=== PATIENT | female | born 1960 | race Caucasian/White ===

== ENCOUNTER 2021-03-18 06:34 | Day surgery (SDC) | payer OTHER ==
[2021-03-15 09:18] LABS: COVID AG,FIA SOURCE NASOPHARYNGEAL
[~2021-03-18] VITALS: Ht 165.1 cm; Wt 72.7 kg
[~2021-03-18 06:34] MED LIST: SODIUM CHLORIDE 0.9% 1,000 ML IV ONE
[2021-03-18] MEDS ORDERED: SODIUM CHLORIDE 0.9% 1,000 ML ONE (06:56)
[2021-03-18] MEDS ORDERED: FentaNYL CITRATE PF 100 MCG/2 ML VIAL ONE (07:52)
[2021-03-18] MEDS ORDERED: MIDAZOLAM HCL 5 MG/ML VIAL ONE (07:53)
[2021-03-18] MEDS ORDERED: MethylPREDNISolone SOD SUCC 125 MG/2 ML VIAL ONE (09:04)
[2021-03-18] MEDS ORDERED: MethylPREDNISolone SOD SUCC 125 MG/2 ML VIAL IVP ONE (09:30)
[2021-03-18] MEDS ORDERED: OXYGEN THERAPY IH SCH (20:00)
== END 2021-03-18 11:50 | disposition home or self-care (01) ==
LOC: SURGERY 06:34
PROVIDERS: ATTEND Internal Medicine Critical Care Medicine
DX: J38.4 Edema of larynx (principal); B37.0 Candidal stomatitis; F17.210 Nicotine dependence, cigarettes, uncomplicated; Z98.890 Other specified postprocedural states; Z79.899 Other long term (current) drug therapy; Z85.3 Personal history of malignant neoplasm of breast
CPT/HCPCS: 31623; 31624; 71045; 87015; 87070; 87220; 87101; 87205; 87206; 87426; 88112; 88312; C9803; J2250; J2930; J3010; J7030